=== PATIENT | female | born 1945 | race Caucasian/White ===

== ENCOUNTER 2017-08-28 14:23 | Emergency (ER) | payer MEDICARE ==
[~2017-08-28] VITALS: Ht 152.4 cm; Wt 110.0 kg
[2017-08-28 14:32] VITALS: Ht 152.4 cm; Wt 110.0 kg
[2017-08-28] MEDS ORDERED: TENORMIN50 MG PO (14:35)
[2017-08-28] MEDS ORDERED: PAXIL30 MG PO (14:35)
[2017-08-28] MEDS ORDERED: LISINOPRIL10 MG PO (14:35)
[2017-08-28] MEDS ORDERED: OMEPRAZOLE20 M1 PO (14:35)
[2017-08-28] MEDS ORDERED: SINGULAIR10 MG PO (14:35)
[2017-08-28] MEDS ORDERED: CRESTOR20 MG PO (14:36)
[2017-08-28] MEDS ORDERED: SYNTHROID175 MCG PO (14:36)
[2017-08-28] MEDS ORDERED: OXYBUTYNIN CHLOR5 MG PO (14:36)
[2017-08-28] MEDS ORDERED: ULTRAM50 MG PO (14:37)
[2017-08-28] MEDS ORDERED: VOLTAREN75 MG PO (14:37)
[2017-08-28] MEDS ORDERED: FUROSEMIDE40 MG PO (14:37)
[2017-08-28] MEDS ORDERED: ATIVAN0.5 MG PO (14:37)
[2017-08-28] MEDS ORDERED: K-TAB10 MEQ PO (14:37)
[2017-08-28] MEDS ORDERED: NORCO 7.5/325 T1 TA1 PO (14:38)
[2017-08-28 16:09] LABS: APPEARANCE HAZY (CLEAR); BILIRUBIN NEGATIVE (NEGATIVE); COLOR YELLOW (YELLOW); GLUCOSE NEGATIVE (NEGATIVE); KETONE NEGATIVE (NEGATIVE); NITRITE NEGATIVE (NEGATIVE); PROTEIN TRACE mg/dL (NEGATIVE); SPECIFIC GRAVITY 1.015 (1.005-1.020); UROBILINOGEN NORMAL (NORMAL)
[2017-08-28 16:11] LABS: WHITE CELLS - URINE 0-5 /hpf (0-5)
[2017-08-28 16:12] LABS: BACTERIA MODERATE /hpf (NONE SEEN)
[2017-08-28 16:13] LABS: YEAST <1+ /hpf (NONE SEEN)
[2017-08-28] MEDS ORDERED: VALIUM 2 MG TAB2 MG PO (18:21)
[2017-08-28 18:47] VITALS: BP 162/88
== END 2017-08-28 18:38 | disposition home or self-care (01) ==
LOC: D.ER 14:23
PROVIDERS: Family Medicine
DX: M54.16 Radiculopathy, lumbar region (principal); M16.0 Bilateral primary osteoarthritis of hip; E11.9 Type 2 diabetes mellitus without complications; I10 Essential (primary) hypertension; F17.200 Nicotine dependence, unspecified, uncomplicated